=== PATIENT | female | born 1995 | race Caucasian/White ===

== ENCOUNTER → 2017-10-13 | Outpatient (REF) | payer BC ==
[~2017-10-13] MED LIST: ARIP10TA4 PO; CITA-157 PO; MECL25TA9 PO; NORE0.352 PO; ONDA4TAB PO; PRAZ1CAP26 PO; PROM-110 PO; SCOP1PAT16 TD
[2017-10-13 18:11] LABS: PLATELET COUNT, AUTOMATED 270 K/uL (150-450)
== END ==
PROVIDERS: ATTEND Nurse Practitioner Family
DX: R10.9 Unspecified abdominal pain (principal)
CPT/HCPCS: 82040; 82247; 82310; 82374; 82435; 82565; 82947; 84075; 84132; 84155; 84295; 84450; 84460; 84520; 85025

== ENCOUNTER 2017-10-14 20:53 | Emergency (ER) | payer BC ==
[~2017-10-14] VITALS: Ht 160 cm; Wt 65.8 kg
[2017-10-14] MEDS ORDERED: ARIP10TA4 PO (21:09)
[2017-10-14] MEDS ORDERED: ONDA4TAB PO (21:09)
[2017-10-14] MEDS ORDERED: NORE0.352 PO (21:09)
[2017-10-14] MEDS ORDERED: PRAZ1CAP26 PO (21:09)
[2017-10-14] MEDS ORDERED: CITA-157 PO (21:09)
--- NOTE | 2017-10-14 21:10 | ER Report ---
History and Physical Time Seen By MD: 21:09 HPI/ROS CHIEF COMPLAINT: nausea, dizziness HISTORY OF PRESENT ILLNESS: This is a 21 year old female. She is here tonight because of ongoing problems with nausea/vomiting and dizziness. Started a couple of days ago. Went to urgent care yesterday. They provided Zofran. Did blood and urine testing, which were negative. She has a little bit of congestion , mild sore throat. Subjective fevers. Feels dizzy with sitting and standing. Does note that she has more dizziness with turning the head to the right. No chest pain. No shortness of breath. No musculoskeletal pain. Has been drying to drink extra fluids, has poor appetite. Allergies: Coded Allergies: Sulfa (Sulfonamide Antibiotics) (Verified Allergy, Intermediate, 10/14/17) Home Meds Active Scripts Promethazine Hcl (PROMETHAZINE HCL) 25 Mg Tablet, 25 MG PO Q8H Y for NAUSEA/ VOMITING, #20 TAB 0 Refills Prov:MOLLY BURR MD 10/14/17 Meclizine Hcl (MECLIZINE HCL) 25 Mg Tablet, 25 MG PO Q8H Y for DIZZINESS, #20 TAB 0 Refills Prov:MOLLY BURR MD 10/14/17 Scopolamine (Scopolamine) 1 Mg/3 Day Patch.td.3, 1 PATCH.72H TD Q3D Y for DIZZINESS, #10 PATCH.72H 0 Refills Prov:MOLLY BURR MD 10/14/17 Reported Medications Ondansetron (ZOFRAN ODT) 4 Mg Tab.rapdis, 4 MG PO Q12H, TAB.ED 10/14/17 Norethindrone (NORETHINDRONE) 0.35 Mg Tablet, 0 PO 10/14/17 Prazosin Hcl (PRAZOSIN HCL) 1 Mg Capsule, 1 MG PO, CAPSULE 10/14/17 Citalopram Hydrobromide (CELEXA) 40 Mg Tablet, 40 MG PO QDAY, #5 TAB 10/14/17 Aripiprazole (ABILIFY) 10 Mg Tablet, 10 MG PO QDAY, TAB 10/14/17 Reviewed Nurses Notes: Yes Constitutional Vital Sign - Last 24 Hours 10/14/17 10/14/17 21:09 23:12 Temp 98.2 98.5 Pulse 92 80 Resp 18 18 B/P (MAP) 127/83 107/73 (84) Pulse Ox 98 96 O2 Delivery Room Air Room Air Physical Exam General Appearance: The patient is alert. No acute distress. Eyes: Pupils are equal, round. Reactive to light. No pallor, injection or icterus. Extraocular movements are intact. She does have some nystagmus, fast beat to the right with turning head and gaze to the right. ENT: Mucous membranes are moist. Normal oral mucosa. Posterior oropharynx is normal. Normal nasal mucosa. Tympanic membranes show effusion on the right side , but no redness or bulging. The left side appears normal. Neck: Supple and non tender. She does have some anterior cervical lymphadenopathy. Respiratory: Breathing easily and unlabored. Lungs are clear to auscultation. Cardiovascular: Regular rate and rhythm. No murmurs, gallops or rubs. Normal capillary refill. Gastrointestinal: Abdomen is soft and non tender. Nondistended. Normal active bowel sounds. Neurological: Alert and oriented x3. Cranial nerves II through XII show no acute deficits on my exam. No focal neurologic deficits in the extremities. [place]- Hallpike maneuver was positive to the right side, reproducing dizziness. Skin: Warm and dry. No rashes. Musculoskeletal: Extremities are nontender. Full range of motion. DIFFERENTIAL DIAGNOSIS: After history and physical exam, differential diagnosis was considered for peripheral vertigo from what appears to be a viral labyrinthitis. Medical Decision Making ED Course/Re-evaluation ED Course Meclizine and Phenergan were given orally. Only minimal improvement. Started the patient on a Scopolamine patch. Discussed the cause of dizziness and nausea and typical treatment. Home with Meclizine, Scopolamine patch and Phenergan. Decision to Disposition Date: Oct 14, 2017 Decision to Disposition Time: 22:55 Depart Departure Latest Vital Signs Vital Signs Date Time Temp Pulse Resp B/P (MAP) Pulse Ox O2 Delivery O2 Flow Rate FiO2 10/14/17 23:12 98.5 80 18 107/73 (84) 96 Room Air Impression: Primary Impression: Labyrinthitis, acute viral Condition: Improved Disposition: HOME OR SELF-CARE New Scripts Promethazine Hcl (PROMETHAZINE HCL) 25 Mg Tablet 25 MG PO Q8H Y for NAUSEA/VOMITING, #20 TAB 0 Refills Prov: MOLLY BURR MD 10/14/17 Meclizine Hcl (MECLIZINE HCL) 25 Mg Tablet 25 MG PO Q8H Y for DIZZINESS, #20 TAB 0 Refills Prov: MOLLY BURR MD 10/14/17 Scopolamine (Scopolamine) 1 Mg/3 Day Patch.td.3 1 PATCH.72H TD Q3D Y for DIZZINESS, #10 PATCH.72H 0 Refills Prov: MOLLY BURR MD 10/14/17 Patient Instructions: Labyrinthitis (ED) Additional Instructions: You appear to have a viral labyrinthitis, a viral infection of the inner ear that causes dizziness and nausea. Take Meclizine 25mg one every 8 hours as needed for dizziness. You can try a Scopolamine patch behind the ear, place on for 3 days, then you can change for another. Try Phenergan 25mg, one every 8 hours as needed for nausea or vomiting. You can also continue to use the Zofran. Rest and increase fluid intake over the next few days. Problem Qualifiers Primary Impression: Labyrinthitis, acute viral Laterality: unspecified laterality Qualified Codes: H83.09 - Labyrinthitis, unspecified ear MOLLY BURR MD Oct 14, 2017 21:10
[2017-10-14] MEDS ORDERED: PROMETHAZINE HCL 25 MG TAB PO ONE (21:55)
[2017-10-14] MEDS ORDERED: MECLIZINE HCL 25 MG TAB PO ONE (21:55)
[2017-10-14] MEDS ORDERED: MECLIZINE HCL 12.5 MG TAB TH PO ONE (22:55)
[2017-10-14] MEDS ORDERED: PROMETHAZINE HCL 25 MG TAB TH 2 TAB/BOTTLE PO ONE (22:55)
[2017-10-14] MEDS ORDERED: SCOPOLAMINE 1.5 MG PATCH TD ONE (22:55)
[2017-10-14] MEDS ORDERED: MECL25TA9 PO (22:58)
[2017-10-14] MEDS ORDERED: PROM-110 PO (22:58)
[2017-10-14] MEDS ORDERED: SCOP1PAT16 TD (22:58)
[2017-10-14 23:12] VITALS: BP 107/73
== END 2017-10-14 23:11 | disposition home or self-care (01) ==
LOC: ER 21:13
DX: H83.01 Labyrinthitis, right ear (principal)
CPT/HCPCS: 99282; J8597; Q0169

== ENCOUNTER 2018-01-02 01:34 | Emergency (ER) | payer BC ==
--- NOTE | 2018-01-02 01:55 | ER Report ---
History and Physical Time Seen By : 01:55 Hx. of Stated Complaint: PT STATES THAT SHE WAS MAKING SUICIDAL STATEMENTS TONIGHT. DEINES HAVING ANY PLAN AT THIS TIME. STATES THAT SHE IS DEALING WITH "ALOT OF DRAMA". HPI/ROS CHIEF COMPLAINT: Suicidal ideation HISTORY OF PRESENT ILLNESS: 22-year-old female who presents after telling her friend that she wanted to kill herself. Her friend contacted authorities and police entered her apartment and brought her to the emergency Department filing a title 25 hold. She denies having any specific plan. She states that she has multiple stressors in her life but does not want to talk about them. She denies any specific stressor that caused her to have suicidal thoughts tonight. She denies taking any medications other than one Ambien. She denies any attempts to self-harm. She reports suicidal ideation 2 times in the past including one year ago where she tried to cut her wrist. REVIEW OF SYSTEMS: Constitutional: No fever, no chills. Eyes: No discharge. ENT: No sore throat. Cardiovascular: No chest pain, no palpitations. Respiratory: No cough, no shortness of breath. Gastrointestinal: No abdominal pain, no vomiting. Genitourinary: No hematuria. Musculoskeletal: No back pain. Skin: No rashes. Neurological: No headache. Allergies: Coded Allergies: Sulfa (Sulfonamide Antibiotics) (Verified Allergy, Intermediate, 01/02/18) Home Meds Active Scripts Promethazine Hcl (PROMETHAZINE HCL) 25 Mg Tablet, 25 MG PO Q8H Y for NAUSEA/ VOMITING, #20 TAB 0 Refills Prov:MOLLY BURR MD 10/14/17 Meclizine Hcl (MECLIZINE HCL) 25 Mg Tablet, 25 MG PO Q8H Y for DIZZINESS, #20 TAB 0 Refills Prov:MOLLY BURR MD 10/14/17 Scopolamine (Scopolamine) 1 Mg/3 Day Patch.td.3, 1 PATCH.72H TD Q3D Y for DIZZINESS, #10 PATCH.72H 0 Refills Prov:MOLLY BURR MD 10/14/17 Reported Medications Ondansetron (ZOFRAN ODT) 4 Mg Tab.rapdis, 4 MG PO Q12H, TAB.ED 10/14/17 Norethindrone (NORETHINDRONE) 0.35 Mg Tablet, 0 PO 10/14/17 Prazosin Hcl (PRAZOSIN HCL) 1 Mg Capsule, 1 MG PO, CAPSULE 10/14/17 Citalopram Hydrobromide (CELEXA) 40 Mg Tablet, 40 MG PO QDAY, #5 TAB 10/14/17 Aripiprazole (ABILIFY) 10 Mg Tablet, 10 MG PO QDAY, TAB 10/14/17 Past Medical/Surgical History See nurse's note Social History of Patient is a vargas in college. Hx Substance Use Disorder: No Hx Alcohol Use: Yes (OCC.) Constitutional Vital Sign - Last 24 Hours 01/02/18 01/02/18 01:36 03:04 Temp 98.2 Pulse 103 104 Resp 14 14 B/P (MAP) 132/86 124/67 (86) Pulse Ox 98 95 O2 Delivery Room Air Room Air Physical Exam General Appearance: The patient is mildly sedated, arouses to voice, has no immediate need for airway protection and no signs of toxicity. Eyes: Pupils equal and round no pallor or injection. ENT, Mouth: Mucous membranes are moist. Respiratory: No respiratory distress. Cardiovascular: Pulses normal. Neurological: Alert and oriented 3, no motor or sensory deficits. Skin: Intact, warm and dry, no rashes. Musculoskeletal: Extremities are nontender, nonswollen and have full range of motion. DIFFERENTIAL DIAGNOSIS: After history and physical exam differential diagnosis was considered for suicidal ideation including but not limited to overdose, intoxication, depression. Medical Decision Making Data Points Result Diagram: 01/02/18 0140 01/02/18 0140 Laboratory Hematology Test 01/02/18 01:40 Red Blood Count 5.24 M/uL (4.17-5.56) Mean Corpuscular Volume 89.3 fL (80.0-96.0) Mean Corpuscular Hemoglobin 31.2 pg (26.0-33.0) Mean Corpuscular Hemoglobin Concent 34.9 g/dL (32.0-36.0) Red Cell Distribution Width 12.8 % (11.5-14.5) Mean Platelet Volume 8.6 fL (7.2-11.1) Neutrophils (%) (Auto) 72.3 % (39.4-72.5) Lymphocytes (%) (Auto) 21.2 % (17.6-49.6) Monocytes (%) (Auto) 5.4 % (4.1-12.4) Eosinophils (%) (Auto) 0.6 % (0.4-6.7) Basophils (%) (Auto) 0.5 % (0.3-1.4) Nucleated RBC Relative Count (auto) 0.1 /100WBC Neutrophils # (Auto) 8.6 K/uL (2.0-7.4) Lymphocytes # (Auto) 2.5 K/uL (1.3-3.6) Monocytes # (Auto) 0.6 K/uL (0.3-1.0) Eosinophils # (Auto) 0.1 K/uL (0.0-0.5) Basophils # (Auto) 0.1 K/uL (0.0-0.1) Nucleated RBC Absolute Count (auto) 0.01 K/uL Urine Color Yellow Urine Clarity Slightly-cloudy Urine pH 6.0 pH (4.8-9.5) Urine Specific [place] 1.027 Urine Protein Negative mg/dL (NEGATIVE) Urine Glucose (UA) Negative mg/dL (NEGATIVE) Urine Ketones Trace mg/dL (NEGATIVE) Urine Blood Negative (NEGATIVE) Urine Nitrite Negative (NEGATIVE) Urine Bilirubin Negative (NEGATIVE) Urine Urobilinogen Negative mg/dL (0.2-1.9) Urine Leukocyte Esterase Negative (NEGATIVE) Urine RBC 1 /HPF (0-2/HPF) Urine WBC 2 /HPF (0-5/HPF) Urine Squamous Epithelial Cells Many /LPF (</=FEW) Urine Amorphous Crystals Few /HPF Urine Bacteria Negative /HPF (NONE-FEW) Urine Mucus Few /HPF (NONE-FEW) Sodium Level 138 mmol/L (137-145) Potassium Level 4.1 mmol/L (3.5-5.0) Chloride Level 103 mmol/L (98-107) Carbon Dioxide Level 22 mmol/L (22-31) Blood Urea Nitrogen 15 mg/dl (7-18) Creatinine 1.00 mg/dl (0.52-1.04) Glomerular Filtration Rate Calc > 60.0 Random Glucose 103 mg/dl (75-110) Calcium Level 9.4 mg/dl (8.4-10.2) Magnesium Level 2.2 mg/dl (1.7-2.2) Total Bilirubin 0.5 mg/dl (0.2-1.3) Aspartate Amino Transf (AST/SGOT) 28 U/L (0-35) Alanine Aminotransferase (ALT/SGPT) 30 U/L (0-56) Alkaline Phosphatase 112 U/L (0-126) Total Protein 7.4 gm/dl (6.3-8.2) Albumin 4.2 g/dl (3.5-5.0) Human Chorionic Gonadotropin, Qual Negative (NEGATIVE) Salicylates Level < 10 mg/L Salicylate Last Dose Date Unk Urine Opiates Screen Negative Acetaminophen Level < 10 ug/ml Urine Barbiturates Screen Negative Ur Tricyclic Antidepressants Screen Negative Urine Phencyclidine Screen Negative Urine Amphetamines Screen Negative Urine Benzodiazepines Screen Negative Urine Cocaine Screen Negative Urine Cannabinoids Screen Negative Serum Alcohol < 10 mg/dl Chemistry Test 01/02/18 01:40 White Blood Count 11.9 k/uL (4.5-11.0) Red Blood Count 5.24 M/uL (4.17-5.56) Hemoglobin 16.3 g/dL (12.0-16.0) Hematocrit 46.8 % (34.0-47.0) Mean Corpuscular Volume 89.3 fL (80.0-96.0) Mean Corpuscular Hemoglobin 31.2 pg (26.0-33.0) Mean Corpuscular Hemoglobin Concent 34.9 g/dL (32.0-36.0) Red Cell Distribution Width 12.8 % (11.5-14.5) Platelet Count 265 K/uL (150-450) Mean Platelet Volume 8.6 fL (7.2-11.1) Neutrophils (%) (Auto) 72.3 % (39.4-72.5) Lymphocytes (%) (Auto) 21.2 % (17.6-49.6) Monocytes (%) (Auto) 5.4 % (4.1-12.4) Eosinophils (%) (Auto) 0.6 % (0.4-6.7) Basophils (%) (Auto) 0.5 % (0.3-1.4) Nucleated RBC Relative Count (auto) 0.1 /100WBC Neutrophils # (Auto) 8.6 K/uL (2.0-7.4) Lymphocytes # (Auto) 2.5 K/uL (1.3-3.6) Monocytes # (Auto) 0.6 K/uL (0.3-1.0) Eosinophils # (Auto) 0.1 K/uL (0.0-0.5) Basophils # (Auto) 0.1 K/uL (0.0-0.1) Nucleated RBC Absolute Count (auto) 0.01 K/uL Urine Color Yellow Urine Clarity Slightly-cloudy Urine pH 6.0 pH (4.8-9.5) Urine Specific [place] 1.027 Urine Protein Negative mg/dL (NEGATIVE) Urine Glucose (UA) Negative mg/dL (NEGATIVE) Urine Ketones Trace mg/dL (NEGATIVE) Urine Blood Negative (NEGATIVE) Urine Nitrite Negative (NEGATIVE) Urine Bilirubin Negative (NEGATIVE) Urine Urobilinogen Negative mg/dL (0.2-1.9) Urine Leukocyte Esterase Negative (NEGATIVE) Urine RBC 1 /HPF (0-2/HPF) Urine WBC 2 /HPF (0-5/HPF) Urine Squamous Epithelial Cells Many /LPF (</=FEW) Urine Amorphous Crystals Few /HPF Urine Bacteria Negative /HPF (NONE-FEW) Urine Mucus Few /HPF (NONE-FEW) Glomerular Filtration Rate Calc > 60.0 Calcium Level 9.4 mg/dl (8.4-10.2) Magnesium Level 2.2 mg/dl (1.7-2.2) Total Bilirubin 0.5 mg/dl (0.2-1.3) Aspartate Amino Transf (AST/SGOT) 28 U/L (0-35) Alanine Aminotransferase (ALT/SGPT) 30 U/L (0-56) Alkaline Phosphatase 112 U/L (0-126) Total Protein 7.4 gm/dl (6.3-8.2) Albumin 4.2 g/dl (3.5-5.0) Human Chorionic Gonadotropin, Qual Negative (NEGATIVE) Salicylates Level < 10 mg/L Salicylate Last Dose Date Unk Urine Opiates Screen Negative Acetaminophen Level < 10 ug/ml Urine Barbiturates Screen Negative Ur Tricyclic Antidepressants Screen Negative Urine Phencyclidine Screen Negative Urine Amphetamines Screen Negative Urine Benzodiazepines Screen Negative Urine Cocaine Screen Negative Urine Cannabinoids Screen Negative Serum Alcohol < 10 mg/dl Toxicology Test 01/02/18 01:40 Salicylates Level < 10 mg/L Salicylate Last Dose Date Unk Urine Opiates Screen Negative Acetaminophen Level < 10 ug/ml Urine Barbiturates Screen Negative Ur Tricyclic Antidepressants Screen Negative Urine Phencyclidine Screen Negative Urine Amphetamines Screen Negative Urine Benzodiazepines Screen Negative Urine Cocaine Screen Negative Urine Cannabinoids Screen Negative Serum Alcohol < 10 mg/dl Urinalysis Test 01/02/18 01:40 Urine Color Yellow Urine Clarity Slightly-cloudy Urine pH 6.0 pH (4.8-9.5) Urine Specific [place] 1.027 Urine Protein Negative mg/dL (NEGATIVE) Urine Glucose (UA) Negative mg/dL (NEGATIVE) Urine Ketones Trace mg/dL (NEGATIVE) Urine Blood Negative (NEGATIVE) Urine Nitrite Negative (NEGATIVE) Urine Bilirubin Negative (NEGATIVE) Urine Urobilinogen Negative mg/dL (0.2-1.9) Urine Leukocyte Esterase Negative (NEGATIVE) Urine RBC 1 /HPF (0-2/HPF) Urine WBC 2 /HPF (0-5/HPF) Urine Squamous Epithelial Cells Many /LPF (</=FEW) Urine Amorphous Crystals Few /HPF Urine Bacteria Negative /HPF (NONE-FEW) Urine Mucus Few /HPF (NONE-FEW) ED Course/Re-evaluation ED Course Patient is distant and unwilling to talk about stressors. Find patient be at risk for self-harm. Total 25 was upheld. Psychiatry screening labs normal. No evidence of overdose. Medically cleared for psych eval. Patient was admitted to psychiatry service. Dr. Lam excepts admission. Decision to Disposition Date: January 02, 2018 Decision to Disposition Time: 02:42 Depart Departure Latest Vital Signs Vital Signs Date Time Temp Pulse Resp B/P (MAP) Pulse Ox O2 Delivery O2 Flow Rate FiO2 01/02/18 03:04 104 14 124/67 (86) 95 Room Air 01/02/18 01:36 98.2 Impression: Primary Impression: Suicidal ideation Condition: Condition Unchanged Disposition: Admitted from ER PARTHA CASILLAS MD January 02, 2018 01:55
[2018-01-02 02:05] LABS: PLATELET COUNT, AUTOMATED 265 K/uL (150-450)
[2018-01-02 03:04] VITALS: BP 124/67
[2018-01-03] MEDS ORDERED: ARIP10TA4 PO (10:34)
[2018-01-03] MEDS ORDERED: BUPR-474 PO (10:35)
[2018-01-03] MEDS ORDERED: PRAZ1CAP25 PO (10:36)
[2018-01-03] MEDS ORDERED: CITA-157 PO (10:36)
[2018-01-03] MEDS ORDERED: FLUT16SP19 ENA (10:37)
== END 2018-01-02 03:10 | disposition other institution (70) ==
LOC: ER 01:45
DX: R45.851 Suicidal ideations (principal)
CPT/HCPCS: 36415; 80305; 80320; 80329; 81001; 82040; 82247; 82310; 82374; 82435; 82565; 82947; 83735; 84075; 84132; 84155; 84295; 84443; 84450; 84460; 84520; 84703; 85025; 99285

== ENCOUNTER 2018-01-02 02:54 | Inpatient (IN) | payer BC ==
[2018-01-02] MEDS ORDERED: ACETAMINOPHEN 325 MG TAB PO PRN (03:25)
[2018-01-02] MEDS ORDERED: hydrOXYzine PAMOATE 25 MG CAP PO PRN (03:25)
[2018-01-02] MEDS ORDERED: MAG HYD/AL HYD/SIMETH 30ML UDC PO PRN (03:25)
[2018-01-02 03:41] VITALS: BP 129/83
[2018-01-02] MEDS: MULTIVITAMINS TAB PO SCH (08:11)
[2018-01-02 13:25] VITALS: BP 112/64
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
[2018-01-02] MEDS: FLUTICASONE PROP 0.05% 16 GM ENA SCH (20:33)
[2018-01-02] MEDS ORDERED: buPROPion XL 150 MG TABCR PO SCH (21:00)
[2018-01-02] MEDS ORDERED: ARIPiprazole 10 MG TAB PO SCH (21:00)
[2018-01-02] MEDS ORDERED: PRAZOSIN HCL 1 MG CAP PO SCH (21:00)
[2018-01-02] MEDS ORDERED: CITALOPRAM HYDROBROM 20 MG TAB PO ONE (21:00)
[2018-01-02 21:46] VITALS: BP 104/66
[2018-01-02] MEDS ORDERED: DIAZEPAM 5 MG TAB PO ONE (22:10)
[2018-01-03 05:40] VITALS: BP 119/63
[2018-01-03] MEDS: FLUTICASONE PROP 0.05% 16 GM ENA SCH (08:20)
[2018-01-03] MEDS: MULTIVITAMINS TAB PO SCH (08:46)
[2018-01-03] MEDS ORDERED: ARIP10TA4 PO (10:34)
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
[2018-01-03] MEDS ORDERED: BUPR-474 PO (10:35)
[2018-01-03] MEDS ORDERED: PRAZ1CAP25 PO (10:36)
[2018-01-03] MEDS ORDERED: CITA-157 PO (10:36)
[2018-01-03] MEDS ORDERED: FLUT16SP19 ENA (10:37)
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
== END 2018-01-03 11:14 | disposition home or self-care (01) | DRG 881 ==
LOC: BHS 02:54
PROVIDERS: ADMIT Psychiatry & Neurology Psychiatry; ATTEND Psychiatry & Neurology Psychiatry
DX: F34.1 Dysthymic disorder (principal); R45.851 Suicidal ideations; F43.12 Post-traumatic stress disorder, chronic; F60.3 Borderline personality disorder; Z91.410 Personal history of adult physical and sexual abuse; Z91.5 Personal history of self-harm; Z81.8 Family history of other mental and behavioral disorders